=== PATIENT | male | born 1965 | race Caucasian/White ===

== ENCOUNTER 2019-10-02 11:24 | Emergency (ER) | payer BC ==
[~2019-10-02] VITALS: Ht 180.3 cm; Wt 102.0 kg
[~2019-10-02 11:24] MED LIST: ERYT1OIN6 EACHEYE; HYDR-3965 PO; HYDR-569 PO; NO HOME MEDS
[2019-10-02 12:14] LABS: BASOPHILS % (AUTO) 0.3 % (0-1); EOSINOPHILS # (AUTO) 0.2 X10'3 (0-0.9); EOSINOPHILS % (AUTO) 2.7 % (0-6); HEMATOCRIT 48.6 % (42.0-52.0); LYMPHOCYTES # (AUTO) 1.6 X10'3 (1.1-4.8); MEAN CORPUSCULAR HEMOGLOBIN 32.7 PG (27.0-31.0); MEAN CORPUSCULAR VOLUME 93.5 FL (78-98); MEAN PLATELET VOLUME 7.9 FL (7.4-10.4); MONOCYTES # (AUTO) 0.7 X10'3 (0-0.9); MONOCYTES % (AUTO) 9.2 % (2-12); NEUTROPHILS # (AUTO) 5.3 X10'3 (1.8-7.7); NEUTROPHILS % (AUTO) 67.8 % (42-75); PLATELET COUNT 174 X10'3 (140-440); RED CELL DISTRIBUTION WIDTH 13.3 % (11.5-14.5); WHITE BLOOD COUNT 7.8 X10'3 (4.5-11.0)
[2019-10-02 12:30] LABS: ALANINE AMINOTRANSFERASE 176 U/L (12-78); ALBUMIN 3.8 G/DL (3.4-5.0); ALBUMIN/GLOBULIN RATIO 0.8 (1.1-1.5); ALKALINE PHOSPHATASE 101 IU/L (46-116); ANION GAP 9 (8-16); ASPARTATE AMINO TRANSFERASE 121 U/L (10-37); BILIRUBIN,TOTAL 0.6 MG/DL (0.1-1.0); BLOOD UREA NITROGEN 9 MG/DL (7-18); BUN/CREATININE RATIO 8.5 (5.4-32.0); CALCIUM 9.2 MG/DL (8.5-10.1); CHLORIDE 105 MMOL/L (99-107); CREATININE 1.06 MG/DL (0.60-1.10); GLUCOSE 123 MG/DL (70-104); POTASSIUM 4.1 MMOL/L (3.5-5.1); SODIUM 139 MMOL/L (135-145); TOTAL CARBON DIOXIDE 25.2 MMOL/L (24-32); TOTAL PROTEIN 8.5 G/DL (6.4-8.2); eGFR 73 ML/MIN
[2019-10-02] MEDS ORDERED: ipratropium/albuterol 3ml nebule NEB ONE (14:00)
[2019-10-02 14:46] VITALS: BP 127/75
[2019-10-02] MEDS ORDERED: ALBU18HF2 INH (15:02)
== END 2019-10-02 15:01 | disposition home or self-care (01) ==
LOC: ER 11:24
DX: R06.2 Wheezing (principal); B34.9 Viral infection, unspecified; F15.90 Other stimulant use, unspecified, uncomplicated; F11.90 Opioid use, unspecified, uncomplicated; F17.200 Nicotine dependence, unspecified, uncomplicated; Z56.0 Unemployment, unspecified; Z90.49 Acquired absence of other specified parts of digestive tract; Z98.890 Other specified postprocedural states; Z88.0 Allergy status to penicillin; Z88.6 Allergy status to analgesic agent; Z88.5 Allergy status to narcotic agent
CPT/HCPCS: 36415; 71045; 80053; 84484; 85025; 93005; 94640; 94760; 99284

== ENCOUNTER 2020-04-23 23:36 | Emergency (ER) | payer BC, MEDICAID ==
[~2020-04-23] VITALS: Ht 180.3 cm; Wt 95.5 kg
[~2020-04-23 23:36] MED LIST changes: +ALBU18HF2 INH
[2020-04-24] MEDS ORDERED: dexamethasone 4mg tablet PO ONE (00:05)
[2020-04-24] MEDS ORDERED: PRED20TA PO (00:09)
[2020-04-24] MEDS ORDERED: HYDR-3686 PO (00:09)
[2020-04-24] MEDS ORDERED: BETA15CR4 TOP (00:09)
[2020-04-24 00:28] VITALS: BP 141/93
== END 2020-04-24 00:29 | disposition home or self-care (01) ==
LOC: ER 23:36
DX: L23.7 Allergic contact dermatitis due to plants, except food (principal); F15.90 Other stimulant use, unspecified, uncomplicated; F11.90 Opioid use, unspecified, uncomplicated; Z86.19 Personal history of other infectious and parasitic diseases; Z90.89 Acquired absence of other organs; Z98.890 Other specified postprocedural states; Z72.89 Other problems related to lifestyle; Z56.0 Unemployment, unspecified; Z88.0 Allergy status to penicillin; Z88.6 Allergy status to analgesic agent; Z88.8 Allergy status to other drugs, medicaments and biological substances; Z79.2 Long term (current) use of antibiotics; Z79.899 Other long term (current) drug therapy
CPT/HCPCS: 99283